=== PATIENT | female | born 1980 | race Caucasian/White ===

== ENCOUNTER 2024-12-29 06:16 | Day surgery (SDC) | payer BC, SELFPAY ==
[2024-12-27 11:00] LABS: Hematocrit 37.7 % (37.0-47.0); Hemoglobin 13.2 g/dL (12.0-16.0); Mean Corp Hgb Conc. 35.0 g/dL (33.0-37.0); Mean Corpuscular Volume 97.4 fL (81.0-99.0); Nucleated Red Blood Cells % 0 %; Platelet Count 189 10^3/uL (130-400); Red Cell Dist. Width 11.5 % (11.5-14.5)
[2024-12-27 11:45] LABS: HCG, Serum Qualitative Screen Negative
[2024-12-27 14:08] VITALS: BMI 22.9
[2024-12-29 10:19] VITALS: BMI 22.9
[2024-12-29 10:20] VITALS: BP 106/69
[2024-12-29] MEDS: NORMOSOL-R/PLASMALYTE-A 1000 IV (10:31)
[2024-12-29 12:45] VITALS: BP 104/60
[2024-12-29 13:00] VITALS: BP 118/71
[2024-12-29 13:15] VITALS: BP 116/68
[2024-12-29 13:30] VITALS: BP 123/57
== END 2024-12-29 13:45 | disposition home or self-care (01) ==
LOC: SDS 06:16
PROVIDERS: ATTENDING PHYSICIAN Obstetrics & Gynecology; FAMILY PHYSICIAN Nurse Practitioner Family
DX: N92.4 Excessive bleeding in the premenopausal period (principal)
CPT/HCPCS: 58558; 36415; 84703; 85025; 88305